=== PATIENT | male | born 1950 | race Caucasian/White ===

== ENCOUNTER 2016-10-15 05:37 | Outpatient (CLI) | payer BC ==
[~2016-10-15] VITALS: Ht 177.8 cm; Wt 90.7 kg
[~2016-10-15 05:37] MED LIST: ATOR10TA PO; BISO5TAB8 PO; CPR500T PO; FENO145T2 PO; GLIM2TAB PO; MTF500T PO; TRM50T PO
[2016-10-15] MEDS ORDERED: COLE625T9 PO (15:12)
[2016-10-15] MEDS ORDERED: GLIM4TAB PO (15:12)
[2016-10-15] MEDS ORDERED: DAPA10TA PO (15:12)
[2016-10-15] MEDS ORDERED: LISI10TA2 PO (15:12)
[2016-10-15] MEDS ORDERED: ATOR20TA66 PO (15:12)
[2016-10-15] MEDS ORDERED: SITA100T12 PO (15:12)
== END 2016-10-15 15:23 ==
LOC: PREOP 05:37
PROVIDERS: ATTEND Internal Medicine
DX: Z01.818 Encounter for other preprocedural examination (principal); Z12.11 Encounter for screening for malignant neoplasm of colon

== ENCOUNTER 2016-10-18 07:46 | Day surgery (SDC) | payer BC ==
--- NOTE | 2016-10-10 23:22 | HISTORY AND PHYSICAL ---
DATE OF SERVICE: 10/18/2016 HISTORY OF PRESENT ILLNESS: The patient is a 66-year-old white male referred by Dr. Tse for screening colonoscopy. He is deemed to be of higher than average risk as his father had secondary to metastatic colorectal carcinoma at the age of 64. He has had a brother who had 2 cancerous polyps removed at the age of 55. He last underwent colonoscopy per Dr. Serna nearly 6 years ago at which time no abnormalities were noted. Prior to that in 2004, he had had 2 adenomas removed. Prior to that, he had had several small adenomatous polyps removed. The patient reports no bright red blood per rectum or melena. He has had no bowel habit change and reports that he feels well. 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 PAST MEDICAL HISTORY: Hypertension, hyperlipidemia and Type 2 diabetes mellitus for which he is on oral therapy. He has no known history of coronary artery disease. MEDICATIONS ON ADMISSION: Include metformin 500 mg b.i.d., Januvia 100 mg daily, Farxiga 10 mg daily, Glimepiride 4 mg daily, Welchol 625 mg 3 tablets b.i.d., atorvastatin 20 mg daily, lisinopril 10 mg daily, bisoprolol 5 mg daily. PAST SURGICAL HISTORY: He has had lumbar disk surgery in 2012 and has done well with resolution of radicular pain since that time. Appendectomy and carpal tunnel surgery in the past. FAMILY HISTORY: As per HPI. SOCIAL HISTORY: He is retired. He does have a 50+ pack year smoking history, quit as I recall around 1999, but continues to chew tobacco. He reports no significant alcohol intake. PHYSICAL EXAMINATION: GENERAL: Reveals a well appearing white male in no acute distress. VITAL SIGNS: Blood pressure 152/90, heart rate 66 and regular. HEENT: Examination is unremarkable. Sclerae nonicteric. Oral cavity Reveals no exudate, no evidence for tonsils. CHEST: Clear. CARDIOVASCULAR: Reveals regular rate and rhythm without murmur, S3 or S4. ABDOMEN: Soft, supple without mass, organomegaly or tenderness. Bowel sounds are positive. No evidence for abdominal aortic aneurysm was noted on manual palpation. EXTREMITIES: Reveal no cyanosis, clubbing or edema. ASSESSMENT: The patient is set up for screening colonoscopy on 10/18/2016 deemed to be of higher than average risk considering family history for colon cancer. Index cases for his father who succumbed to disease at the age of 64 and one brother who reported had 2 cancerous polyps removed around the age of 55. Prep instructions with Suprep kit were given and questions were answered. I thank you for the referral of this pleasant gentleman. Job ID: [id number] DocumentID: [id number] Dictated Date: 10/08/2016 09:42:43 Document Coordinator Date: 10/08/2016 10:09:30 Dictated By: ARTI MILLER MD
[~2016-10-18] VITALS: Ht 177.8 cm; Wt 90.7 kg
[~2016-10-18 07:46] MED LIST changes: +ATOR20TA66 PO; +COLE625T9 PO; +DAPA10TA PO; +GLIM4TAB PO; +LISI10TA2 PO; +SITA100T12 PO
[2016-10-18] MEDS ORDERED: 1/2 NS IV SOLUTION 1,000 ML IV STA (07:57)
[2016-10-18] MEDS ORDERED: MIDAZOLAM 2 MG/2 ML (VERSED) VIAL IVP PRN (08:00)
[2016-10-18] MEDS ORDERED: fentaNYL INJECTION 100 MCG/2 ML AMP IVP PRN (08:00)
[2016-10-18] MEDS ORDERED: LIDOCAINE JELLY 2% (XYLOCAINE) 5 ML TUBE MM PRN (08:00)
[2016-10-18 08:11] VITALS: BP 141/89
[2016-10-18] MEDS ORDERED: fentaNYL INJECTION 100 MCG/2 ML AMP ONE (08:56)
[2016-10-18] MEDS ORDERED: MIDAZOLAM 2 MG/2 ML (VERSED) VIAL ONE ×2 (08:56)
[2016-10-18] MEDS ORDERED: LIDOCAINE JELLY 2% (XYLOCAINE) 5 ML TUBE ONE (08:56)
--- NOTE | 2016-10-18 09:12 | Pre-Op Note & Conscious Sedat ---
Pre-Operative Progress Note H&P Reviewed The H&P was reviewed, patient examined and no changes noted. Date H&P Reviewed: Oct 18, 2016 Time H&P Reviewed: 09:00 Conscious Sedation Pre-Proced ASA Class: 2 Airway Mallampati Classification: ([place] appropriate class) I. II. III, IV Lungs Heart ASA score ASA 1: a normal healthy patient ASA 2: a patient with a mild systemic disease (mid diabetes, controlled hypertension, obesity ASA 3: a patient with a severe systemic disease that limits activity (angina , COPD, prior Myocardial infarction) ASA 4: a patient with an incapacitating disease that is a constant threat to life (CHF, renal failure) ASA 5: a moribund patient not expected to survive 24 hrs. (ruptured aneurysm) ASA 6: a declared brain patient whose organs are being harvested. For emergent operations, add the letter E after the classification Grade 2 Sedation Plan: Analgesia, Amnesia, Plan communicated to team members, Discussed options with patient/fam, Discussed risks with patient/fam Note The patient is an appropriate candidate to undergo the planned procedure, sedation, and anesthesia. The patient immediately re-assessed prior to indication. ARTI MILLER MD Oct 18, 2016 09:12
[2016-10-18 09:50] VITALS: BP 160/90
[2016-10-18 10:15] VITALS: BP 165/88
[2016-10-18 10:20] VITALS: BP 165/88
--- NOTE | 2016-10-19 15:23 | OPERATIVE REPORT ---
DATE OF SERVICE: COLONOSCOPY SUMMARY INDICATION FOR THE PROCEDURE: Screening colonoscopy. DESCRIPTION OF PROCEDURE: The patient was placed in the left lateral decubitus position. Prior to undergoing colonoscopy, digital rectal evaluation was performed. Anal sphincter tone was normal and the perianal reflexes intact. The prostate was moderately enlarged, anodular and nontender to digital inspection. No other abnormalities were noted on additional inspection of the anal canal or distal rectal vault. The colonoscope was then inserted into the rectum and under direct visualization advanced to the cecum. The cecum was identified by identification of the ileocecal valve, cecal strap and the appendiceal orifice. Photographic documentation was obtained. Careful inspection was made as the colonoscope was withdrawn. The patient tolerated the procedure well. FINDINGS: There is no evidence for internal or external hemorrhoids. The rectum was unremarkable. The sigmoid colon, splenic flexure and transverse colon were unremarkable. Present in the hepatic flexure was diminutive 2 mm sessile polyp. It was photographed and biopsied and ablated and submitted for histopathology. Remainder of the hepatic flexure, ascending colon and cecum were unremarkable. ASSESSMENT: One diminutive polyp was removed from the hepatic flexure with benign appearance. This was otherwise normal colonoscopy to the cecum. I would advocate consideration for repeat surveillance colonoscopy in 5 years secondary to this patient's family history. Additional findings include moderate BPH without evidence for nodularity on digital inspection. Thank you for the referral of this pleasant gentleman. Job ID: [id number] DocumentID: [id number] Dictated Date: 10/18/2016 13:02:36 Retirement Plan Counselor Date: 10/19/2016 03:50:06 Dictated By: ARTI MILLER MD
== END 2016-10-18 10:20 | disposition home or self-care (01) ==
LOC: ENDO 07:46
PROVIDERS: ATTEND Internal Medicine
DX: Z12.11 Encounter for screening for malignant neoplasm of colon (principal); D12.3 Benign neoplasm of transverse colon; N40.0 Benign prostatic hyperplasia without lower urinary tract symptoms; Z80.0 Family history of malignant neoplasm of digestive organs; Z86.010 Personal history of colon polyps; I10 Essential (primary) hypertension; E78.5 Hyperlipidemia, unspecified; E11.9 Type 2 diabetes mellitus without complications; Z79.899 Other long term (current) drug therapy; F17.220 Nicotine dependence, chewing tobacco, uncomplicated

== ENCOUNTER 2018-08-31 06:01 | Outpatient (CLI) | payer BC, MEDICARE, OTHER ==
[~2018-08-31] VITALS: Ht 177.8 cm; Wt 85.7 kg
[2018-08-31] MEDS ORDERED: METF-399 PO (15:23)
[2018-08-31] MEDS ORDERED: EXEN2PEN SQ (15:23)
[2018-08-31] MEDS ORDERED: LOVA40TA2 PO (15:23)
== END 2018-08-31 15:28 | disposition home or self-care (01) ==
LOC: PREOP 06:01
PROVIDERS: ATTEND Surgery
DX: Z01.818 Encounter for other preprocedural examination (principal)

== ENCOUNTER 2018-09-03 11:24 | Day surgery (SDC) | payer MEDICARE, OTHER ==
[~2018-09-03] VITALS: Ht 177.8 cm; Wt 85.7 kg
[2018-09-03] VITALS (10 sets, daily range): BP systolic 165–199; BP diastolic 87–114
[~2018-09-03 11:24] MED LIST changes: +EXEN2PEN SQ; +LOVA40TA2 PO; +METF-399 PO
--- OUTSIDE RECORDS SUMMARY | 2018-09-03 11:28 | XMS REPORT | Continuity of Care Document ---
Author Organization Unknown Address Unknown Allergies Active Description Code Type Severity Reaction Onset Reported/Identified Relationship to Patient Clinical Status Yes Penicillins [id number] Drug Allergy Unknown N/A 10/18/2016 Medications There is no data. Problems Date Dx Coded Attending Type Code Diagnosis Diagnosed By 10/01/2009 Ot 924.20 10/01/2009 Ot 959.7 10/01/2009 Ot E000.8 10/01/2009 Ot E821.9 11/16/2010 Ot 569.0 ANAL RECTAL POLYP 11/16/2010 Ot V12.72 PERSONAL HISTORY OF COLONIC POLYPS 11/16/2010 Ot V16.0 FAMILY HX-GI MALIGNANCY 11/16/2010 Ot V76.51 SCREEN MAL NEOP- COLON 09/29/2011 Ot 599.0 URIN TRACT INFECTION NOS 09/29/2011 Ot 601.0 ACUTE PROSTATITIS 09/29/2011 Ot 788.1 DYSURIA 12/08/2014 Ot 841.9 12/08/2014 Ot E000.8 12/08/2014 Ot E928.8 12/08/2014 Ot 786.2 12/08/2014 Ot 722.10 12/08/2014 Ot 722.52 12/29/2014 Ot 841.9 12/29/2014 Ot E000.8 12/29/2014 Ot E928.8 12/29/2014 Ot 786.2 12/29/2014 Ot 722.10 12/29/2014 Ot 722.52 04/01/2016 Ot 786.2 COUGH 04/01/2016 Ot 722.10 LUMBAR DISC DISPLACEMENT 04/01/2016 Ot 722.52 LUMB/LUMBOSAC DISC DEGEN 08/16/2016 Ot 786.2 COUGH 08/16/2016 Ot 722.10 LUMBAR DISC DISPLACEMENT 08/16/2016 Ot 722.52 LUMB/LUMBOSAC DISC DEGEN 08/19/2016 Ot 786.2 COUGH 08/19/2016 Ot 722.10 LUMBAR DISC DISPLACEMENT 08/19/2016 Ot 722.52 LUMB/LUMBOSAC DISC DEGEN 10/15/2016 ARTI MILLER MD Ot Z01.818 ENCOUNTER FOR OTHER PREPROCEDURAL EXAMIN 10/15/2016 ARTI MILLER MD Ot Z12.11 ENCOUNTER FOR SCREENING FOR MALIGNANT NE 10/15/2016 ARTI MILLER MD Ot Z01.818 ENCOUNTER FOR OTHER PREPROCEDURAL EXAMIN 10/15/2016 ARTI MILLER MD Ot Z12.11 ENCOUNTER FOR SCREENING FOR MALIGNANT NE 10/15/2016 ARTI MILLER MD Ot Z01.818 ENCOUNTER FOR OTHER PREPROCEDURAL EXAMIN 10/15/2016 ARTI MILLER MD Ot Z12.11 ENCOUNTER FOR SCREENING FOR MALIGNANT NE 10/18/2016 ARTI MILLER MD Ot D12.3 BENIGN NEOPLASM OF TRANSVERSE COLON 10/18/2016 ARTI MILLER MD Ot E11.9 TYPE 2 DIABETES MELLITUS WITHOUT COMPLIC 10/18/2016 ARTI MILLER MD Ot E78.5 HYPERLIPIDEMIA, UNSPECIFIED 10/18/2016 ARTI MILLER MD Ot F17.220 NICOTINE DEPENDENCE, CHEWING TOBACCO, UN 10/18/2016 ARTI MILLER MD Ot I10 ESSENTIAL (PRIMARY) HYPERTENSION 10/18/2016 ARTI MILLER MD Ot N40.0 BENIGN PROSTATIC HYPERPLASIA WITHOUT LOW 10/18/2016 ARTI MILLER MD Ot Z12.11 ENCOUNTER FOR SCREENING FOR MALIGNANT NE 10/18/2016 ARTI MILLER MD Ot Z79.899 OTHER [facility] (CURRENT) DRUG THERAPY 10/18/2016 ARTI MILLER MD Ot Z80.0 FAMILY HISTORY OF MALIGNANT NEOPLASM OF 10/18/2016 ARTI MILLER MD Ot Z86.010 PERSONAL HISTORY OF COLONIC POLYPS 10/23/2016 ARTI MILLER MD Ot D12.3 BENIGN NEOPLASM OF TRANSVERSE COLON 10/23/2016 ARTI MILLER MD Ot E11.9 TYPE 2 DIABETES MELLITUS WITHOUT COMPLIC 10/23/2016 ARTI MILLER MD Ot E78.5 HYPERLIPIDEMIA, UNSPECIFIED 10/23/2016 ARTI MILLER MD Ot F17.220 NICOTINE DEPENDENCE, CHEWING TOBACCO, UN 10/23/2016 ARTI MILLER MD Ot I10 ESSENTIAL (PRIMARY) HYPERTENSION 10/23/2016 ARTI MILLER MD Ot N40.0 BENIGN PROSTATIC HYPERPLASIA WITHOUT LOW 10/23/2016 ARTI MILLER MD Ot Z12.11 ENCOUNTER FOR SCREENING FOR MALIGNANT NE 10/23/2016 ARTI MILLER MD Ot Z79.899 OTHER [facility] (CURRENT) DRUG THERAPY 10/23/2016 ARTI MILLER MD Ot Z80.0 FAMILY HISTORY OF MALIGNANT NEOPLASM OF 10/23/2016 ARTI MILLER MD Ot Z86.010 PERSONAL HISTORY OF COLONIC POLYPS 11/27/2016 ARTI MILLER MD Ot D12.3 BENIGN NEOPLASM OF TRANSVERSE COLON 11/27/2016 ARTI MILLER MD Ot E11.9 TYPE 2 DIABETES MELLITUS WITHOUT COMPLIC 11/27/2016 ARTI MILLER MD Ot E78.5 HYPERLIPIDEMIA, UNSPECIFIED 11/27/2016 ARTI MILLER MD Ot F17.220 NICOTINE DEPENDENCE, CHEWING TOBACCO, UN 11/27/2016 ARTI MILLER MD Ot I10 ESSENTIAL (PRIMARY) HYPERTENSION 11/27/2016 ARTI MILLER MD Ot N40.0 BENIGN PROSTATIC HYPERPLASIA WITHOUT LOW 11/27/2016 ARTI MILLER MD Ot Z12.11 ENCOUNTER FOR SCREENING FOR MALIGNANT NE 11/27/2016 ARTI MILLER MD Ot Z79.899 OTHER [facility] (CURRENT) DRUG THERAPY 11/27/2016 ARTI MILLER MD Ot Z80.0 FAMILY HISTORY OF MALIGNANT NEOPLASM OF 11/27/2016 ARTI MILLER MD Ot Z86.010 PERSONAL HISTORY OF COLONIC POLYPS 08/31/2018 BLESSING VIVEROS MD Ot Z01.818 ENCOUNTER FOR OTHER PREPROCEDURAL EXAMIN 09/01/2018 BLESSING VIVEROS MD Ot Z01.818 ENCOUNTER FOR OTHER PREPROCEDURAL EXAMIN Procedures There is no data. Results There is no data. Encounters ACCT No. Visit Date/Time Discharge Status Pt. Type Provider Facility Loc./Unit Complaint [id number] 08/31/2018 06:01:00 08/31/2018 15:28:00 DIS Outpatient BLESSING VIVEROS MD [facility] PREOP SYMPTOMATIC VENTRAL ABDOMINAL HERNIA [id number] 10/18/2016 07:46:00 10/18/2016 10:20:00 DIS Outpatient ARTI MILLER MD [facility] ENDO SCREENING COLONOSCOPY [id number] 10/15/2016 05:37:00 10/15/2016 15:23:00 DIS Outpatient ANGELA WEINBERG, ARTI Islas [facility] PREOP SCREENING COLONOSCOPY [id number] 12/12/2014 10:45:00 12/12/2014 23:59:59 CLS Outpatient TRE CURIEL APRN [facility] QUICK [id number] 09/03/2018 14:30:00 PEN Preadmit BLESSING VIVEROS MD [facility] SYMPTOMATIC VENTAL ABDOMINAL HERNIA [id number] 09/29/2011 07:04:00 Document Registration [id number] 05/16/2011 08:07:00 Document Registration [id number] 02/28/2011 13:46:00 Document Registration [id number] 11/16/2010 06:51:00 Document Registration [id number] 09/28/2010 14:27:00 Document Registration [id number] 10/01/2009 12:20:00 Document Registration
--- OUTSIDE RECORDS SUMMARY | 2018-09-03 11:28 | XMS REPORT | CCD ---
Author Author Marilin Hobbs Organization [facility] Address [address] [place] [address] Phone Care Team Providers Care Global Technical Writer Name Role Phone PP Unavailable CCM Unavailable Summary Purpose Interface Exchange Insurance Providers Payer name Policy type / Coverage type Covered libertarian ID Effective Begin Date Effective End Date CORESOURCES Commercial Insurance [id number] Unknown Unknown Family history Sister Diagnosis Age At Onset Diabetes mellitus Type 2 Unknown Mother Diagnosis Age At Onset Hypertension Unknown Heart Attack Unknown Father Diagnosis Age At Onset Colon cancer Unknown Brother Diagnosis Age At Onset Diabetes mellitus Type 2 Unknown Social History Social History Element Codes Description Effective Dates Marital status Unknown 07/12/2014 Living arrangements Unknown House 07/12/2014 Number of adults in household Unknown 3 lives with and 's adult sister who has down syndrome 07/12/2014 Employment Unknown Retired 07/12/[address]: [id number] Currently uses smokeless tobacco 1 can every 2 weeks 07/12/2014 Number of years using tobacco Unknown 20 - 30 25 years 07/12/2014 Alcohol history Unknown occasionally drinks alcohol 1 beer per month 07/12/2014 Allergies, Adverse Reactions, Alerts Substance Reaction Codes Entered Date Inactivated Date Status Penicillin hives Unknown 07/12/2014 No Inactive Date Active Past Medical History Illness Codes Condition Status Onset Date Resolved Date Tinea unguium ICD-9: 110.1 ICD-10: B35.1 Active 06/25/2015 Unknown Atherosclerosis of aorta ICD-9: 440.0 ICD-10: I70.0 Active 02/15/2015 Unknown Essential (primary) hypertension ICD-9: 401.9 ICD-10: I10 Active 02/15/2015 Unknown Other bed bug exterminator (current) drug therapy ICD-9: V58.69 ICD-10: Z79.899 Active 02/15/2015 Unknown Pleurodynia ICD-9: 786.50 ICD-10: R07.81 Active 12/14/2014 Unknown Diabetes Unknown Active 07/12/2014 Unknown Hyperlipidemia Unknown Active 07/12/2014 Unknown Hypertension Unknown Active 07/12/2014 Unknown DIABETES TYPE II ICD-9: 250.00 Active 07/11/2014 Unknown ESSENTIAL HYPERTENSION ICD-9: 401.9 Active 07/11/2014 Unknown Fatigue ICD-9: 780.79 Active 07/11/2014 Unknown HYPERLIPIDEMIA ICD-9: 272.4 Active 07/11/2014 Unknown URINARY FREQUENCY ICD-9: 788.41 Active 07/11/2014 Unknown Problems Condition Codes Effective Dates Condition Status Tinea unguium ICD-9: 110.1 ICD-10: B35.1 06/25/2015 Active Atherosclerosis of aorta ICD-9: 440.0 ICD-10: I70.0 02/15/2015 Active Essential (primary) hypertension ICD-9: 401.9 ICD-10: I10 02/15/2015 Active Other retirement (current) drug therapy ICD-9: V58.69 ICD-10: Z79.899 02/15/2015 Active Pleurodynia ICD-9: 786.50 ICD-10: R07.81 12/14/2014 Active Diabetes Unknown 07/12/2014 Active Hyperlipidemia Unknown 07/12/2014 Active Hypertension Unknown 07/12/2014 Active DIABETES TYPE II ICD-9: 250.00 07/11/2014 Active ESSENTIAL HYPERTENSION ICD-9: 401.9 07/11/2014 Active Fatigue ICD-9: 780.79 07/11/2014 Active HYPERLIPIDEMIA ICD-9: 272.4 07/11/2014 Active URINARY FREQUENCY ICD-9: 788.41 07/11/2014 Active Medications Medication Codes Instructions Start Date Stop Date Status Fill Instructions atorvastatin 80 mg tablet RxNorm: 979918 1 Tablet(s) PO daily 07/11/2016 07/05/2017 Active lisinopril 10 mg tablet RxNorm: 638916 1 Tablet(s) PO daily 06/21/2016 06/15/2017 Active Farxiga 10 mg tablet RxNorm: 5863452 1 Tablet(s) PO daily 06/21/2016 06/15/2017 Active glimepiride 4 mg tablet RxNorm: 093435 1 Tablet(s) PO daily 05/31/2016 11/26/2016 Active atorvastatin 80 mg tablet RxNorm: 749252 1 Tablet(s) PO daily 03/12/2016 07/10/2016 Inactive atorvastatin 80 mg tablet RxNorm: 408194 1 Tablet(s) PO daily 02/29/2016 02/28/2016 Inactive atorvastatin 80 mg tablet RxNorm: 151677 1 Tablet(s) PO daily 02/29/2016 03/11/2016 Inactive WelChol 625 mg tablet RxNorm: 055179 3 Tablet(s) PO BID 12/01/2015 08/26/2016 Active lisinopril 10 mg tablet RxNorm: 221140 1 Tablet(s) PO daily 10/30/2015 06/20/2016 Inactive Farxiga 10 mg tablet RxNorm: 1417773 1 Tablet(s) PO daily 10/30/2015 06/20/2016 Inactive Januvia 100 mg tablet RxNorm: 904380 1 Tablet(s) PO daily 10/13/2015 07/08/2016 Inactive metformin 500 mg tablet RxNorm: 688615 1.5 Tablet(s) PO BID 10/11/2015 10/04/2016 Active Dosage increased- Fill when ready for refill atorvastatin 40 mg tablet RxNorm: 091652 1 Tablet(s) PO daily 10/11/2015 02/28/2016 Inactive Fill when ready for a refill glimepiride 4 mg tablet RxNorm: 712898 1 Tablet(s) PO daily 09/22/2015 03/19/2016 Inactive atorvastatin 40 mg tablet RxNorm: 159289 1/2 Tablet(s) PO daily 09/05/2015 10/10/2015 Inactive bisoprolol fumarate 5 mg tablet RxNorm: 311963 1/2 Tablet(s) PO daily 07/04/2015 06/27/2016 Inactive Lamisil 250 mg tablet RxNorm: 909026 1 Tablet(s) PO daily 06/26/2015 08/06/2015 Inactive atorvastatin 40 mg tablet RxNorm: 504375 1 Tablet(s) PO daily 06/05/2015 09/04/2015 Inactive atorvastatin 20 mg tablet RxNorm: 608480 1 Tablet(s) PO daily 02/22/2015 06/04/2015 Inactive atorvastatin 20 mg tablet RxNorm: 914200 1 Tablet(s) PO daily 02/21/2015 02/21/2015 Inactive atorvastatin 20 mg tablet RxNorm: 770312 1 Tablet(s) PO daily 02/21/2015 02/20/2015 Inactive glimepiride 4 mg tablet RxNorm: 687149 1 Tablet(s) PO daily 02/16/2015 08/14/2015 Inactive lisinopril 10 mg tablet RxNorm: 674267 1 Tablet(s) PO daily 02/16/2015 05/16/2015 Inactive metformin 500 mg tablet RxNorm: 489874 1 Tablet(s) PO BID 02/16/2015 10/10/2015 Inactive bisoprolol fumarate 5 mg tablet RxNorm: 729591 1/2 Tablet(s) PO daily 02/16/2015 07/03/2015 Inactive Farxiga 10 mg tablet RxNorm: 6059648 1 Tablet(s) PO daily 02/16/2015 08/14/2015 Inactive Januvia 100 mg tablet RxNorm: 177349 1 Tablet(s) PO daily 02/16/2015 08/14/2015 Inactive atorvastatin 10 mg tablet RxNorm: 318565 1 Tablet(s) PO daily 02/16/2015 02/20/2015 Inactive WelChol 625 mg tablet RxNorm: 787322 3 Tablet(s) PO BID 07/18/2014 07/12/2015 Inactive WelChol 625 mg tablet RxNorm: 359579 3 Tablet(s) PO BID 07/15/2014 07/17/2014 Inactive WelChol 625 mg tablet RxNorm: 854149 3 Tablet(s) PO BID 07/15/2014 07/14/2014 Inactive WelChol 625 mg tablet RxNorm: 239269 3 Tablet(s) PO BID 07/15/2014 07/14/2014 Inactive Januvia 100 mg tablet RxNorm: 605883 1 Tablet(s) PO daily 07/12/2014 01/07/2015 Inactive metformin 500 mg tablet RxNorm: 996374 1 Tablet(s) PO BID 07/12/2014 07/11/2014 Inactive bisoprolol fumarate 5 mg tablet RxNorm: 394885 1/2 Tablet(s) PO daily 07/12/2014 01/07/2015 Inactive atorvastatin 10 mg tablet RxNorm: 083810 1 Tablet(s) PO daily 07/12/2014 01/07/2015 Inactive metformin 500 mg tablet RxNorm: 016940 1 Tablet(s) PO BID 07/12/2014 10/09/2014 Inactive Farxiga 10 mg tablet RxNorm: 2214376 1 Tablet(s) PO daily 07/12/2014 01/07/2015 Inactive lisinopril 10 mg tablet RxNorm: 367046 1 Tablet(s) PO daily 07/12/2014 10/09/2014 Inactive glimepiride 4 mg tablet RxNorm: 914416 1 Tablet(s) PO daily 07/12/2014 01/07/2015 Inactive bisoprolol fumarate oral RxNorm: 259349 oral No Start Date 07/11/2014 Inactive Medication Administered No Medication Administered data Immunizations No Immunization data Assessments Condition Codes Effective Dates Tinea unguium ICD-10: B35.1 ICD-9: 110.1 06/26/2015 Essential (primary) hypertension ICD-10: I10 ICD-9: 401.9 02/16/2015 Atherosclerosis of aorta ICD-10: I70.0 ICD-9: 440.0 02/16/2015 Other bed bug exterminator (current) drug therapy ICD-10: Z79.899 ICD-9: V58.69 02/16/2015 Pleurodynia ICD-10: R07.81 ICD-9: 786.50 12/15/2014 HYPERLIPIDEMIA ICD-9: 272.4 07/12/2014 Fatigue ICD-9: 780.79 07/12/2014 ESSENTIAL HYPERTENSION ICD-9: 401.9 07/12/2014 URINARY FREQUENCY ICD-9: 788.41 07/12/2014 DIABETES TYPE II ICD-9: 250.00 07/12/2014 Reason For Visit Reason For Visit Effective Dates Notes finger pain due to infection 06/26/2015 medication follow up 02/16/2015 bone pain 12/15/2014 diabetes mellitus 07/12/2014 Results Observation Observation Code Item Item Code Result Date Cbc With Differential Ord2 WBC 8.75 K/ul 01/19/2016 Cbc With Differential Ord2 RBC 5.56 M/ul 01/19/2016 Cbc With Differential Ord2 HGB 17.0 g/dl 01/19/2016 Cbc With Differential Ord2 Neut% 59.8 % 01/19/2016 Cbc With Differential Ord2 HCT 48.7 % 01/19/2016 Cbc With Differential Ord2 MCV 87.6 fl 01/19/2016 Cbc With Differential Ord2 Lymph% 27.4 % 01/19/2016 Cbc With Differential Ord2 MCH 30.6 pg 01/19/2016 Cbc With Differential Ord2 Hill% 9.4 % 01/19/2016 Cbc With Differential Ord2 MCHC 34.9 pg 01/19/2016 Cbc With Differential Ord2 Eos% 3.1 % 01/19/2016 Cbc With Differential Ord2 PLT 232 K/ul 01/19/2016 Cbc With Differential Ord2 Baso% 0.3 % 01/19/2016 Cbc With Differential Ord2 RDW 13.9 % 01/19/2016 Cbc With Differential Ord2 Neut ABS# 5.23 K/ul 01/19/2016 Cbc With Differential Ord2 Lymph ABS# 2.40 K/ul 01/19/2016 Cbc With Differential Ord2 Hill ABS# 0.8 K/ul 01/19/2016 Cbc With Differential Ord2 Eos ABS# 0.3 K/ul 01/19/2016 Cbc With Differential Ord2 Baso ABS# 0.0 K/ul 01/19/2016 Tsh Ord6 hTSH II 3.61 uIU/mL 01/19/2016 Comp Metabolic Mtv321 NA 137 mEq/L 01/19/2016 Comp Metabolic Eaa627 K 4.4 mEq/L 01/19/2016 Comp Metabolic Ooj216 CL 102 mEq/L 01/19/2016 Comp Metabolic Pem459 CO2 28.0 mEq/L 01/19/2016 Comp Metabolic Bnr415 ANION GAP 11 01/19/2016 Comp Metabolic Lrr383 GLUCOSE 175 mg/dL 01/19/2016 Comp Metabolic Cgg861 Creat 1.0 mg/dL 01/19/2016 Comp Metabolic Pgx564 eGFR 79 ml/min/1.73m2 01/19/2016 Comp Metabolic Vbs948 BUN 17 mg/dL 01/19/2016 Comp Metabolic Aaa708 B/C Ratio 16.8 Ratio 01/19/2016 Comp Metabolic Sis185 CALCIUM 10.1 mg/dL 01/19/2016 Comp Metabolic Xkn016 ALK PHOS 86 U/L 01/19/2016 Comp Metabolic Odq093 AST(SGOT) 23 U/L 01/19/2016 Comp Metabolic Uub400 ALT(SGPT) 50 U/L 01/19/2016 Comp Metabolic Ueu163 BILI T 0.7 mg/dL 01/19/2016 Comp Metabolic Wxm697 ALBUMIN 4.7 g/dL 01/19/2016 Comp Metabolic Dll696 TPRO 7.1 g/dL 01/19/2016 Comp Metabolic Idy751 GLOB 2.4 g/dL 01/19/2016 Comp Metabolic Ncs262 A/G Ratio 1.9 Ratio 01/19/2016 Comp Metabolic Gfc873 Osmo 280 mOsmo 01/19/2016 %Hba1C Onr427 % HbA1c 80487- 6 7.2 % 01/19/2016 %Hba1C Rkj372 Gluc Ave 160 mg/dL 01/19/2016 Lipid Ord30 CHOL 156 mg/dL 01/19/2016 Lipid Ord30 HDL 29.0 mg/dl 01/19/2016 Lipid Ord30 TRIG >1000 mg/dL 01/19/2016 Lipid Ord30 LDL Unable to calculate Due to elevated triglycerides mg/dL 01/19/2016 Lipid Ord30 C/HDL 5.4 Ratio 01/19/2016 Lipid Ord30 CHOL 211 mg/dL 10/10/2015 Lipid Ord30 HDL 31.0 mg/dl 10/10/2015 Lipid Ord30 TRIG >1000 mg/dL 10/10/2015 Lipid Ord30 LDL Unable to calculate Due to elevated triglycerides mg/dL 10/10/2015 Lipid Ord30 C/HDL 6.8 Ratio 10/10/2015 %Hba1C Hyr583 % HbA1c 05874- 6 7.2 % 10/10/2015 %Hba1C Gaj814 Gluc Ave 160 mg/dL 10/10/2015 Hepatic Rwt452 ALBUMIN 4.6 g/dL 10/10/2015 Hepatic Gna314 TPRO 7.1 g/dL 10/10/2015 Hepatic Rqk426 GLOB 2.5 g/dL 10/10/2015 Hepatic Udq318 A/G Ratio 1.9 Ratio 10/10/2015 Hepatic Net837 ALK PHOS 77 U/L 10/10/2015 Hepatic Hbr814 ALT(SGPT) 39 U/L 10/10/2015 Hepatic Rfw226 AST(SGOT) 23 U/L 10/10/2015 Hepatic Wxh559 BILI T 0.7 mg/dL 10/10/2015 Hepatic Oat453 BILI D 0.1 mg/dL 10/10/2015 Hepatic Yfg146 BILI I 0.6 mg/dL 10/10/2015 Hepatic Vgu032 ALBUMIN 4.5 g/dL 09/01/2015 Hepatic Ffa051 TPRO 6.9 g/dL 09/01/2015 Hepatic Iom937 GLOB 2.4 g/dL 09/01/2015 Hepatic Zeb288 A/G Ratio 1.8 Ratio 09/01/2015 Hepatic Xna164 ALK PHOS 75 U/L 09/01/2015 Hepatic Fmk774 ALT(SGPT) 40 U/L 09/01/2015 Hepatic Mgc655 AST(SGOT) 23 U/L 09/01/2015 Hepatic Ihp129 BILI T 0.6 mg/dL 09/01/2015 Hepatic Qdf186 BILI D 0.1 mg/dL 09/01/2015 Hepatic Crx487 BILI I 0.5 mg/dL 09/01/2015 Hepatic Dfc501 ALBUMIN 4.5 g/dL 07/28/2015 Hepatic Zrs943 TPRO 6.9 g/dL 07/28/2015 Hepatic Yit365 GLOB 2.4 g/dL 07/28/2015 Hepatic Xum199 A/G Ratio 1.9 Ratio 07/28/2015 Hepatic Lyp395 ALK PHOS 82 U/L 07/28/2015 Hepatic Lab334 ALT(SGPT) 38 U/L 07/28/2015 Hepatic Joo345 AST(SGOT) 18 U/L 07/28/2015 Hepatic Vig015 BILI T 0.5 mg/dL 07/28/2015 Hepatic Nyh596 BILI D 0.1 mg/dL 07/28/2015 Hepatic Uru219 BILI I 0.4 mg/dL 07/28/2015 %Hba1C Cva698 % HbA1c 15407- 6 7.2 % 06/05/2015 %Hba1C Fgw275 Gluc Ave 160 mg/dL 06/05/2015 Lipid Ord30 CHOL 129 mg/dL 06/05/2015 Lipid Ord30 HDL 30.0 mg/dl 06/05/2015 Lipid Ord30 TRIG 492 mg/dL 06/05/2015 Lipid Ord30 LDL Unable to calculate Due to elevated triglycerides mg/dL 06/05/2015 Lipid Ord30 C/HDL 4.3 Ratio 06/05/2015 %Hba1C Edg903 % HbA1c 39206- 6 7.1 % 02/17/2015 %Hba1C Dpg146 Gluc Ave 157 mg/dL 02/17/2015 Cbc With Differential Ord2 WBC 8.0 K/uL 02/17/2015 Cbc With Differential Ord2 LYM 2.1 K/uL 02/17/2015 Cbc With Differential Ord2 LYM% 25.9 % 02/17/2015 Cbc With Differential Ord2 NEUT/GRAN 5.4 K/uL 02/17/2015 Cbc With Differential Ord2 NEUT/GRAN % 68.1 % 02/17/2015 Cbc With Differential Ord2 MID 0.5 K/uL 02/17/2015 Cbc With Differential Ord2 MID% 6.0 % 02/17/2015 Cbc With Differential Ord2 RBC 5.46 M/uL 02/17/2015 Cbc With Differential Ord2 HGB 16.3 g/dL 02/17/2015 Cbc With Differential Ord2 HCT 49.8 % 02/17/2015 Cbc With Differential Ord2 MCV 91 fL 02/17/2015 Cbc With Differential Ord2 MCH 30 pg 02/17/2015 Cbc With Differential Ord2 MCHC 33 g/dL 02/17/2015 Cbc With Differential Ord2 PLT 209 K/uL 02/17/2015 Cbc With Differential Ord2 RDW 14.2 % 02/17/2015 Lipid Ord30 CHOL 163 mg/dL 02/17/2015 Lipid Ord30 HDL 32.0 mg/dl 02/17/2015 Lipid Ord30 TRIG 661 mg/dL 02/17/2015 Lipid Ord30 LDL Unable to calculate Due to elevated triglycerides mg/dL 02/17/2015 Lipid Ord30 C/HDL 5.1 Ratio 02/17/2015 Comp Metabolic Xbl449 NA 136 mEq/L 02/17/2015 Comp Metabolic Ryz180 K 4.4 mEq/L 02/17/2015 Comp Metabolic Khc779 CL 103 mEq/L 02/17/2015 Comp Metabolic Oxx135 CO2 26.0 mEq/L 02/17/2015 Comp Metabolic Xuv484 ANION GAP 11 02/17/2015 Comp Metabolic Bth766 GLUCOSE 164 mg/dL 02/17/2015 Comp Metabolic Odj520 Creat 1.0 mg/dL 02/17/2015 Comp Metabolic Rxa705 eGFR 84 ml/min/1.73m2 02/17/2015 Comp Metabolic Use868 BUN 18 mg/dL 02/17/2015 Comp Metabolic Fbl605 B/C Ratio 18.8 Ratio 02/17/2015 Comp Metabolic Zre671 CALCIUM 9.6 mg/dL 02/17/2015 Comp Metabolic Uis043 ALK PHOS 74 U/L 02/17/2015 Comp Metabolic Otg728 AST(SGOT) 20 U/L 02/17/2015 Comp Metabolic Hcp692 ALT(SGPT) 45 U/L 02/17/2015 Comp Metabolic Xxu294 BILI T 0.6 mg/dL 02/17/2015 Comp Metabolic Kkp068 ALBUMIN 4.3 g/dL 02/17/2015 Comp Metabolic Wqu079 TPRO 6.6 g/dL 02/17/2015 Comp Metabolic Gzx092 GLOB 2.3 g/dL 02/17/2015 Comp Metabolic Wdv822 A/G Ratio 1.9 Ratio 02/17/2015 Comp Metabolic Gss641 Osmo 277 mOsmo 02/17/2015 Review of Systems System Result Effective Dates Constitutional No chills 06/26/2015 Constitutional No diaphoresis 06/26/2015 Constitutional No fatigue 06/26/2015 Constitutional No fever 06/26/2015 Constitutional No insomnia 06/26/2015 Constitutional No malaise 06/26/2015 Eyes No eye discharge 06/26/2015 Eyes No eye erythema 06/26/2015 Cardiovascular No chest pain/pressure 06/26/2015 Respiratory No productive sputum 06/26/2015 Respiratory No chest congestion 06/26/2015 Respiratory No cough 06/26/2015 Neurologic No alteration of consciousness 06/26/2015 Ears/Nose/Throat/Neck No nasal allergies 06/26/2015 Ears/Nose/Throat/Neck No nasal discharge 06/26/2015 Cardiovascular No dyspnea 06/26/2015 Gastrointestinal No abdominal pain 06/26/2015 Dermatologic onychodystrophy 06/26/2015 Neurologic No mental status change 06/26/2015 Constitutional No recent illness 02/16/2015 Constitutional No anorexia 02/16/2015 Constitutional No night sweats 02/16/2015 Constitutional No chills 02/16/2015 Constitutional No diaphoresis 02/16/2015 Constitutional No fatigue 02/16/2015 Constitutional No fever 02/16/2015 Constitutional No insomnia 02/16/2015 Constitutional No malaise 02/16/2015 Eyes No eye discharge 02/16/2015 Eyes No eye erythema 02/16/2015 Ears/Nose/Throat/Neck No dizziness 02/16/2015 Ears/Nose/Throat/Neck No headache 02/16/2015 Cardiovascular No chest pain/pressure 02/16/2015 Respiratory No productive sputum 02/16/2015 Respiratory No chest congestion 02/16/2015 Respiratory No cough 02/16/2015 Gastrointestinal No abdominal pain 02/16/2015 Gastrointestinal No constipation 02/16/2015 Gastrointestinal No diarrhea 02/16/2015 Genitourinary/Nephrology No dysuria 02/16/2015 Dermatologic No rash 02/16/2015 Neurologic No alteration of consciousness 02/16/2015 Musculoskeletal No joint complaint 02/16/2015 Respiratory No productive sputum 12/15/2014 Respiratory No chest congestion 12/15/2014 Respiratory No cough 12/15/2014 Constitutional No recent illness 12/15/2014 Constitutional No anorexia 12/15/2014 Constitutional No night sweats 12/15/2014 Constitutional No chills 12/15/2014 Constitutional No fatigue 12/15/2014 Constitutional No fever 12/15/2014 Constitutional No diaphoresis 12/15/2014 Constitutional No malaise 12/15/2014 Constitutional No insomnia 12/15/2014 Constitutional No weight loss 12/15/2014 Constitutional No weight gain 12/15/2014 Eyes No eye discharge 12/15/2014 Eyes No eye erythema 12/15/2014 Ears/Nose/Throat/Neck No dizziness 12/15/2014 Ears/Nose/Throat/Neck No headache 12/15/2014 Cardiovascular No chest pain/pressure 12/15/2014 Gastrointestinal No abdominal pain 12/15/2014 Gastrointestinal No constipation 12/15/2014 Gastrointestinal No diarrhea 12/15/2014 Genitourinary/Nephrology No dysuria 12/15/2014 Dermatologic No rash 12/15/2014 Musculoskeletal No bone fracture 12/15/2014 Neurologic No alteration of consciousness 12/15/2014 Constitutional No fever 07/12/2014 Ears/Nose/Throat/Neck No headache 07/12/2014 Ears/Nose/Throat/Neck No nasal allergies 07/12/2014 Cardiovascular No chest pain/pressure 07/12/2014 Cardiovascular No dyspnea 07/12/2014 Respiratory No cigarette smoking 07/12/2014 Gastrointestinal No constipation 07/12/2014 Gastrointestinal No diarrhea 07/12/2014 Genitourinary/Nephrology urinary urgency 07/12/2014 Genitourinary/Nephrology No dysuria 07/12/2014 Genitourinary/Nephrology No hematuria 07/12/2014 Musculoskeletal No bone pain 07/12/2014 Dermatologic No rash 07/12/2014 Dermatologic No sores 07/12/2014 Neurologic No headache 07/12/2014 Eyes No photophobia 07/12/2014 Eyes No vision change 07/12/2014 Eyes No blindness 07/12/2014 Cardiovascular fatigue 07/12/2014 Respiratory No chest tightness 07/12/2014 Respiratory No chest congestion 07/12/2014 Gastrointestinal No vomiting 07/12/2014 Gastrointestinal No nausea 07/12/2014 Musculoskeletal No back pain 07/12/2014 Physical Exam Exam Name System Name Item Name Status Result Effective Dates Notes Full Exam - General 1994 Constitutional general appearance Overall: well developed 06/26/2015 None Full Exam - General 1994 Constitutional general appearance Overall: in no acute distress 06/26/2015 None Full Exam - General 1994 Constitutional general appearance Overall: well nourished 06/26/2015 None Full Exam - General 1994 Respiratory respiratory effort/rhythm Overall: no retractions 06/26/2015 None Full Exam - General 1994 Respiratory respiratory effort/rhythm Overall: normal rate 06/26/2015 None Full Exam - General 1994 Musculoskeletal gait and station Overall: normal gait 06/26/2015 None Full Exam - General 1994 Musculoskeletal gait and station Overall: normal station 06/26/2015 None Full Exam - General 1994 Neurologic cranial nerves Overall: crainial nerves 2 - 12 grossly intact 06/26/2015 None Full Exam - General 1994 Psychiatric orientation/consciousness Overall: oriented to person, place and time 06/26/2015 None Full Exam - General 1994 Psychiatric mood and affect Overall: normal mood and affect 06/26/2015 None Full Exam - General 1994 Ears/Nose/Throat lips/teeth/gingiva Overall: benign lips 06/26/2015 None Full Exam - General 1994 Musculoskeletal digits and nails Nails: onycholysis 06/26/2015 left thumb - nail raised off of nail bed Full Exam - General 1994 Psychiatric appearance Overall: well-groomed, good eye contact 06/26/2015 None Full Exam - General 1994 Ears/Nose/Throat oral cavity/pharynx/larynx Overall: oral mucosa clear 02/16/2015 None Full Exam - General 1994 Respiratory auscultation Overall: breath sounds clear bilaterally 02/16/2015 None Full Exam - General 1994 Respiratory respiratory effort/rhythm Overall: no retractions 02/16/2015 None Full Exam - General 1994 Respiratory respiratory effort/rhythm Overall: normal rate 02/16/2015 None Full Exam - General 1994 Cardiovascular auscultation of heart Overall: regular rate 02/16/2015 None Full Exam - General 1994 Cardiovascular auscultation of heart Overall: normal heart sounds 02/16/2015 None Full Exam - General 1994 Abdomen abdominal exam Overall: no tenderness 02/16/2015 None Full Exam - General 1994 Abdomen abdominal exam Overall: normal bowel sounds 02/16/2015 None Full Exam - General 1994 Lymphatic neck nodes Overall: anterior cervical chain benign 02/16/2015 None Full Exam - General 1994 Lymphatic neck nodes Overall: posterior cervical chain benign 02/16/2015 None Full Exam - General 1994 Musculoskeletal gait and station Overall: normal gait 02/16/2015 None Full Exam - General 1994 Musculoskeletal gait and station Overall: normal station 02/16/2015 None Full Exam - General 1994 Neurologic coordination Overall: no tremors 02/16/2015 None Full Exam - General 1994 Neurologic cranial nerves Overall: crainial nerves 2 - 12 grossly intact 02/16/2015 None Full Exam - General 1994 Psychiatric orientation/consciousness Overall: oriented to person, place and time 02/16/2015 None Full Exam - General 1994 Psychiatric mood and affect Overall: normal mood and affect 02/16/2015 None Full Exam - General 1994 Psychiatric speech Overall: normal quality, no aphasia 02/16/2015 None Full Exam - General 1994 Constitutional general appearance Overall: well developed 02/16/2015 None Full Exam - General 1994 Constitutional general appearance Overall: in no acute distress 02/16/2015 None Full Exam - General 1994 Constitutional general appearance Overall: well nourished 02/16/2015 None Full Exam - General 1994 Ears/Nose/Throat otoscopic exam Overall: external auditory canals clear 02/16/2015 None Full Exam - General 1994 Ears/Nose/Throat otoscopic exam Overall: tympanic membranes clear 02/16/2015 None Full Exam - General 1994 Ears/Nose/Throat oral cavity/pharynx/larynx Overall: oral mucosa clear 12/15/2014 None Full Exam - General 1994 Neck inspection of neck Overall: normal size 12/15/2014 None Full Exam - General 1994 Neck inspection of neck Overall: normal appearance 12/15/2014 None Full Exam - General 1994 Respiratory auscultation Overall: breath sounds clear bilaterally 12/15/2014 None Full Exam - General 1994 Respiratory respiratory effort/rhythm Overall: no retractions 12/15/2014 None Full Exam - General 1994 Respiratory respiratory effort/rhythm Overall: normal rate 12/15/2014 None Full Exam - General 1994 Cardiovascular inspection of carotid pulses Overall: strong, bilaterally equal, no bruits 12/15/2014 None Full Exam - General 1994 Cardiovascular extremities Overall: no clubbing 12/15/2014 None Full Exam - General 1994 Cardiovascular auscultation of heart Overall: regular rate 12/15/2014 None Full Exam - General 1994 Cardiovascular auscultation of heart Overall: normal heart sounds 12/15/2014 None Full Exam - General 1994 Abdomen abdominal exam Overall: no tenderness 12/15/2014 None Full Exam - General 1994 Abdomen abdominal exam Overall: normal bowel sounds 12/15/2014 None Full Exam - General 1994 Lymphatic neck nodes Overall: anterior cervical chain benign 12/15/2014 None Full Exam - General 1994 Lymphatic neck nodes Overall: posterior cervical chain benign 12/15/2014 None Full Exam - General 1994 Musculoskeletal lower extremity Overall: lower leg non-tender, without crepitus or defects 12/15/2014 None Full Exam - General 1994 Musculoskeletal gait and station Overall: normal gait 12/15/2014 None Full Exam - General 1994 Musculoskeletal gait and station Overall: normal station 12/15/2014 None Full Exam - General 1994 Musculoskeletal head and neck Overall: head atraumatic 12/15/2014 None Full Exam - General 1994 Musculoskeletal head and neck Overall: cervical spine benign 12/15/2014 None Full Exam - General 1994 Musculoskeletal head and neck Head: atraumatic 12/15/2014 None Full Exam - General 1994 Musculoskeletal head and neck Head: normocephalic 12/15/2014 None Full Exam - General 1994 Integument inspection of skin Overall: few scattered moles, no gross abnormalities 12/15/2014 None Full Exam - General 1994 Integument palpation Face: non-tender 12/15/2014 None Full Exam - General 1994 Neurologic deep tendon reflexes Overall: deep tendon reflexes intact 12/15/2014 None Full Exam - General 1994 Neurologic coordination Overall: no tremors 12/15/2014 None Full Exam - General 1994 Neurologic cranial nerves Overall: crainial nerves 2 - 12 grossly intact 12/15/2014 None Full Exam - General 1994 Psychiatric orientation/consciousness Overall: oriented to person, place and time 12/15/2014 None Full Exam - General 1994 Psychiatric mood and affect Overall: normal mood and affect 12/15/2014 None Full Exam - General 1994 Psychiatric speech Overall: normal quality, no aphasia 12/15/2014 None Full Exam - General 1994 Psychiatric orientation/consciousness Overall: oriented to person, place and time 07/12/2014 None Full Exam - General 1994 Psychiatric mood and affect Overall: normal mood and affect 07/12/2014 None Full Exam - General 1994 Psychiatric speech Overall: normal quality, no aphasia 07/12/2014 None Full Exam - General 1994 Neurologic deep tendon reflexes Overall: deep tendon reflexes intact 07/12/2014 None Full Exam - General 1994 Neurologic coordination Overall: no tremors 07/12/2014 None Full Exam - General 1994 Neurologic cranial nerves Overall: crainial nerves 2 - 12 grossly intact 07/12/2014 None Full Exam - General 1994 Integument inspection of skin Overall: few scattered moles, no gross abnormalities 07/12/2014 None Full Exam - General 1994 Integument palpation Face: non-tender 07/12/2014 None Full Exam - General 1994 Musculoskeletal head and neck Overall: head atraumatic 07/12/2014 None Full Exam - General 1994 Musculoskeletal head and neck Overall: cervical spine benign 07/12/2014 None Full Exam - General 1994 Musculoskeletal head and neck Head: atraumatic 07/12/2014 None Full Exam - General 1994 Musculoskeletal head and neck Head: normocephalic 07/12/2014 None Full Exam - General 1994 Musculoskeletal gait and station Overall: normal gait 07/12/2014 None Full Exam - General 1994 Musculoskeletal gait and station Overall: normal station 07/12/2014 None Full Exam - General 1994 Musculoskeletal lower extremity Overall: lower leg non-tender, without crepitus or defects 07/12/2014 None Full Exam - General 1994 Lymphatic neck nodes Overall: anterior cervical chain benign 07/12/2014 None Full Exam - General 1994 Lymphatic neck nodes Overall: posterior cervical chain benign 07/12/2014 None Full Exam - General 1994 Abdomen abdominal exam Overall: no tenderness 07/12/2014 None Full Exam - General 1994 Abdomen abdominal exam Overall: normal bowel sounds 07/12/2014 None Full Exam - General 1994 Cardiovascular inspection of carotid pulses Overall: strong, bilaterally equal, no bruits 07/12/2014 None Full Exam - General 1994 Cardiovascular extremities Overall: no clubbing 07/12/2014 None Full Exam - General 1994 Cardiovascular auscultation of heart Overall: regular rate 07/12/2014 None Full Exam - General 1994 Cardiovascular auscultation of heart Overall: normal heart sounds 07/12/2014 None Full Exam - General 1994 Respiratory respiratory effort/rhythm Overall: no retractions 07/12/2014 None Full Exam - General 1994 Respiratory respiratory effort/rhythm Overall: normal rate 07/12/2014 None Full Exam - General 1994 Respiratory auscultation Overall: breath sounds clear bilaterally 07/12/2014 None Full Exam - General 1994 Neck inspection of neck Overall: normal size 07/12/2014 None Full Exam - General 1994 Neck inspection of neck Overall: normal appearance 07/12/2014 None Full Exam - General 1994 Ears/Nose/Throat oral cavity/pharynx/larynx Overall: oral mucosa clear 07/12/2014 None Procedures No Procedures data Vital Signs Date Vital 06/26/2015 Blood Pressure 1: 158/82 Code: 8480-6 BMI: 28.6 Code: 40136-6 Heart Rate 1: 61 bpm Height: 5'10" SpO2: 96% Weight: 199 lbs 02/16/2015 Blood Pressure 1: 158/82 Code: 8480-6 BMI: 28.6 Code: 11091-7 Heart Rate 1: 61 bpm Height: 5'10" SpO2: 96% Weight: 199 lbs 12/15/2014 Blood Pressure 1: 128/80 Code: 8480-6 BMI: 28.6 Code: 32966-5 Heart Rate 1: 58 bpm Height: 5'10" SpO2: 98% Weight: 199 lbs 07/12/2014 Blood Pressure 1: 148/90 Code: 8480-6 BMI: 28.0 Code: 21784-2 Heart Rate 1: 58 bpm Height: 5'10" Weight: 195 lbs Functional Status No Functional Status data History of Present Illness Symptom Name Status Result Effective Date Notes finger pain due to infection Location in the left thumb 06/26/2015 None finger pain due to infection Quality sharp pain 06/26/2015 None finger pain due to infection Quality numbness 06/26/2015 None finger pain due to infection Quality constant 06/26/2015 None finger pain due to infection Onset of Symptom 4 months ago 06/26/2015 None finger pain due to infection Pertinent Findings pain with movement 06/26/2015 None finger pain due to infection Pertinent Findings redness 06/26/2015 None medication follow up Location oral intake 02/16/2015 None medication follow up Additional Comments medication use 02/16/2015 None medication follow up Quality chronic 02/16/2015 None bone pain Quality acute 12/15/2014 fell onto right side of chest-xray negative bone pain Onset and Resolution ongoing 12/15/2014 pain much improved bone pain Onset of Symptom 4 days ago 12/15/2014 None bone pain Limitation on Activities does not limit activities 12/15/2014 None bone pain Frequency of Episodes decreasing 12/15/2014 None bone pain Triggers no known associated factors 12/15/2014 None diabetes mellitus Quality non-insulin dependent 07/12/2014 None diabetes mellitus Quality chronic 07/12/2014 None diabetes mellitus Quality stable 07/12/2014 None diabetes mellitus Severity moderate 07/12/2014 None diabetes mellitus Test results Pt checking blood glucose readings, did not bring results to clinic 07/12/2014 None diabetes mellitus Alleviating Factors medication 07/12/2014 None diabetes mellitus Alleviating Factors diet 07/12/2014 None diabetes mellitus Alleviating Factors exercise 07/12/2014 None diabetes mellitus Exacerbating Factors diet 07/12/2014 None diabetes mellitus Nutrition regular diet 07/12/2014 None diabetes mellitus Exercise moderate exercise 07/12/2014 None urinary frequency Quality stable 07/12/2014 None urinary frequency Onset and Resolution ongoing 07/12/2014 None urinary frequency Limitation on Activities moderately limits activities 07/12/2014 None urinary frequency Frequency of Episodes unchanged 07/12/2014 None urinary frequency Timing of Episodes at night 07/12/2014 None urinary frequency Timing of Episodes in the morning 07/12/2014 after sitting down for a prolonged period of time urinary frequency Timing of Episodes in the afternoon 07/12/2014 None urinary frequency Significant Medical Conditions diabetes mellitus 07/12/2014 None hypertension Quality chronic 07/12/2014 None hypertension Onset and Resolution ongoing 07/12/2014 None hypertension Onset of Symptom during adulthood 07/12/2014 None hypertension Blood Pressure Values not checking blood pressure at home 07/12/2014 None hypertension Severity mild 07/12/2014 None hypertension Frequency of Episodes unchanged 07/12/2014 None Advance Directives No Advance Directive data Encounters Encounter Performer Location Codes Date [id number] EST. PATIENT, LEVEL IV Diagnosis: Tinea unguium[ICD10: B35.1] Lupe Tse MD, [facility] CPT-4: 43446 06/26/2015 [id number] EST. PATIENT, LEVEL III Diagnosis: Essential (primary) hypertension[ICD10: I10] Diagnosis: Atherosclerosis of aorta[ICD10: I70.0] Diagnosis: Other retirement (current) drug therapy[ICD10: Z79.899] Lupe Tse MD, [facility] CPT-4: 14048 02/16/2015 ([id number]) 53528 EST. PATIENT, LEVEL III Diagnosis: Pleurodynia[ICD10: R07.81] Diagnosis: Atherosclerosis of aorta[ICD10: I70.0] Diagnosis: Essential (primary) hypertension[ICD10: I10] Patricia Tse MD, [facility] CPT-4: 66528 12/15/2014 ([id number]) OFFICE VISIT, NEW - LEVEL 4 Diagnosis: DIABETES TYPE II[ICD9: 250.00] Diagnosis: HYPERLIPIDEMIA[ICD9: 272.4] Diagnosis: ESSENTIAL HYPERTENSION[ICD9: 401.9] Diagnosis: URINARY FREQUENCY[ICD9: 788.41] Diagnosis: Fatigue[ICD9: 780.79] [facility] CPT-4: 70078 07/12/2014 Plan of Care Planned Activity Notes Codes Status Date Visit Plan: Onychodystrophy - Left thumb nail - nail raised from the nail bed, will send RX - pt is to have liver function labs in 2-4 weeks. Pt is to notify clinic symptoms do not improve, or with any questions or concerns. 06/26/2015 Appointment: Lupe Carvajal WPtel: [phone] [id number] (30 min) Complex 06/26/2015 Patient Education: Patient Medication Summary Completed 06/26/2015 Visit Plan: Hypertension - continue with current medications, continue with no added salt diet. Pt has been encouraged to exercise daily.The pt has been advised to call the office if there are any acute concerns about change in blood pressure readings at home.Atherosclerosis of aorta-found on chest xray - Strong family history of heart disease, pt used to smoke, does not currently smoke, but does c hew tobacco - discussed doing screening of abdominal aorta and possibly having an ECHO done. Pt states that he would like to go to a mine engineering superintendent in [place] - Dr. Shabbir Salazar. Will refer patient 02/16/2015 Appointment: (30 min) Complex 02/16/2015 Patient Education: Patient Medication Summary Completed 02/16/2015 Patient Education: Hypertension Completed 02/16/2015 Appointment: (30 min) Complex 01/24/2015 Visit Plan: Hypertension - well controlled - continue with current medications, continue with no added salt diet. Pt has been encouraged to exercise daily.The pt has been advised to call the office if there are any acute concerns about change in blood pressure readings at home.Atherosclerosis of aorta-found on chest xray-discussed obtaining echocardiogram Rib pain-from [id number] if pain does not resolve or if any worse. Patient verbalized understanding of plan. 12/15/2014 Patient Education: Patient Medication Summary Completed 12/15/2014 Patient Education: Hypertension Completed 12/15/2014 Appointment: Fernanda Tse WPtel: [facility] [place] (15 min) Moderate 08/29/2014 Visit Plan: Diabetes Mellitus - Uncontrolled - Labs ordered. I have recommended for the patient to have follow up labs prior to the next office visit. The patient has been instructed to continue with current medications as previously directed, continue with regular FSBS monitoring to assure continued control of diabetes. Pt to call for any acute concerns, complaints, or if the blood glucose readings are starting to become less controlled.I have recommended for the patient to follow more strictly to the diabetic diet as discussed in clinic to allow for greater blood glucose control.Hyperlipidemia - pt has been counseled about appropriate diet, exercise, and need for low fat food choices. I have discussed the need for the patient to take medications as prescribed. If the patient has negative side effects from the medication, they are to CALL the office and not abruptly discontinue the medication without discussion with a practitioner in the office. We will check labs in 3-6 months for follow up on the patient's chronic medical problem and to assure normal liver response to medications.Hypertension - well controlled - continue with current medications, continue with no added salt diet. Pt has been encouraged to exercise daily.The pt has been advised to call the office if there are any acute concerns about change in blood pressure readings at home.Urinary frequency- Check UA and PSAFatigue- Check TSH 07/12/2014 Visit Plan: Diabetes Mellitus - Uncontrolled - Labs ordered. I have recommended for the patient to have follow up labs prior to the next office visit. The patient has been instructed to continue with current medications as previously directed, continue with regular FSBS monitoring to assure continued control of diabetes. Pt to call for any acute concerns, complaints, or if the blood glucose readings are starting to become less controlled.I have recommended for the patient to follow more strictly to the diabetic diet as discussed in clinic to allow for greater blood glucose control.Hyperlipidemia - pt has been counseled about appropriate diet, exercise, and need for low fat food choices. I have discussed the need for the patient to take medications as prescribed. If the patient has negative side effects from the medication, they are to CALL the office and not abruptly discontinue the medication without discussion with a practitioner in the office. We will check labs in 3-6 months for follow up on the patient's chronic medical problem and to assure normal liver response to medications.Hypertension - well controlled - continue with current medications, continue with no added salt diet. Pt has been encouraged to exercise daily.The pt has been advised to call the office if there are any acute concerns about change in blood pressure readings at home.Urinary frequency- Check UA and PSAFatigue- Check TSH 07/12/2014 Visit Plan: Diabetes Mellitus - Uncontrolled - Labs ordered. I have recommended for the patient to have follow up labs prior to the next office visit. The patient has been instructed to continue with current medications as previously directed, continue with regular FSBS monitoring to assure continued control of diabetes. Pt to call for any acute concerns, complaints, or if the blood glucose readings are starting to become less controlled.I have recommended for the patient to follow more strictly to the diabetic diet as discussed in clinic to allow for greater blood glucose control.Hyperlipidemia - pt has been counseled about appropriate diet, exercise, and need for low fat food choices. I have discussed the need for the patient to take medications as prescribed. If the patient has negative side effects from the medication, they are to CALL the office and not abruptly discontinue the medication without discussion with a practitioner in the office. We will check labs in 3-6 months for follow up on the patient's chronic medical problem and to assure normal liver response to medications.Hypertension - well controlled - continue with current medications, continue with no added salt diet. Pt has been encouraged to exercise daily.The pt has been advised to call the office if there are any acute concerns about change in blood pressure readings at home.Urinary frequency- Check UA and PSAFatigue- Check TSH 07/12/2014 Appointment: Patricia Pastor WPtel: [id number] [place] ([place] New Patient 07/12/2014 Patient Education: Patient Medication Summary Completed 07/12/2014 Patient Education: Hypertension Completed 07/12/2014 Care Plan: COMPLETE CBC AUTOMATED LOINC : 90096-2 Ordered 07/12/2014 Care Plan: URINALYSIS NONAUTO W/O SCOPE LOINC : 91098-8 Ordered 07/12/2014 Instructions Comment . Diabetes Mellitus - Uncontrolled - Labs ordered. I have recommended for the patient to have follow up labs prior to the next office visit. The patient has been instructed to continue with current medications as previously directed, continue with regular FSBS monitoring to assure continued control of diabetes. Pt to call for any acute concerns, complaints, or if the blood glucose readings are starting to become less controlled. I have recommended for the patient to follow more strictly to the diabetic diet as discussed in clinic to allow for greater blood glucose control. Hyperlipidemia - pt has been counseled about appropriate diet, exercise, and need for low fat food choices. I have discussed the need for the patient to take medications as prescribed. If the patient has negative side effects from the medication, they are to CALL the office and not abruptly discontinue the medication without discussion with a practitioner in the office. We will check labs in 3-6 months for follow up on the patient's chronic medical problem and to assure normal liver response to medications. Hypertension - well controlled - continue with current medications, continue with no added salt diet. Pt has been encouraged to exercise daily. The pt has been advised to call the office if there are any acute concerns about change in blood pressure readings at home. Urinary frequency- Check UA and PSA Fatigue- Check TSH . Diabetes Mellitus - Uncontrolled - Labs ordered. I have recommended for the patient to have follow up labs prior to the next office visit. The patient has been instructed to continue with current medications as previously directed, continue with regular FSBS monitoring to assure continued control of diabetes. Pt to call for any acute concerns, complaints, or if the blood glucose readings are starting to become less controlled. I have recommended for the patient to follow more strictly to the diabetic diet as discussed in clinic to allow for greater blood glucose control. Hyperlipidemia - pt has been counseled about appropriate diet, exercise, and need for low fat food choices. I have discussed the need for the patient to take medications as prescribed. If the patient has negative side effects from the medication, they are to CALL the office and not abruptly discontinue the medication without discussion with a practitioner in the office. We will check labs in 3-6 months for follow up on the patient's chronic medical problem and to assure normal liver response to medications. Hypertension - well controlled - continue with current medications, continue with no added salt diet. Pt has been encouraged to exercise daily. The pt has been advised to call the office if there are any acute concerns about change in blood pressure readings at home. Urinary frequency- Check UA and PSA Fatigue- Check TSH . Diabetes Mellitus - Uncontrolled - Labs ordered. I have recommended for the patient to have follow up labs prior to the next office visit. The patient has been instructed to continue with current medications as previously directed, continue with regular FSBS monitoring to assure continued control of diabetes. Pt to call for any acute concerns, complaints, or if the blood glucose readings are starting to become less controlled. I have recommended for the patient to follow more strictly to the diabetic diet as discussed in clinic to allow for greater blood glucose control. Hyperlipidemia - pt has been counseled about appropriate diet, exercise, and need for low fat food choices. I have discussed the need for the patient to take medications as prescribed. If the patient has negative side effects from the medication, they are to CALL the office and not abruptly discontinue the medication without discussion with a practitioner in the office. We will check labs in 3-6 months for follow up on the patient's chronic medical problem and to assure normal liver response to medications. Hypertension - well controlled - continue with current medications, continue with no added salt diet. Pt has been encouraged to exercise daily. The pt has been advised to call the office if there are any acute concerns about change in blood pressure readings at home. Urinary frequency- Check UA and PSA Fatigue- Check TSH . Hypertension - continue with current medications, continue with no added salt diet. Pt has been encouraged to exercise daily. The pt has been advised to call the office if there are any acute concerns about change in blood pressure readings at home. Atherosclerosis of aorta-found on chest xray - Strong family history of heart disease, pt used to smoke, does not currently smoke, but does chew tobacco - discussed doing screening of abdominal aorta and possibly having an ECHO done. Pt states that he would like to go to a mine engineering superintendent in [place] - Dr. Shabbir Salazar. Will refer patient . Onychodystrophy - Left thumb nail - nail raised from the nail bed, will send RX - pt is to have liver function labs in 2-4 weeks. Pt is to notify clinic symptoms do not improve, or with any questions or concerns. . Hypertension - well controlled - continue with current medications, continue with no added salt diet. Pt has been encouraged to exercise daily. The pt has been advised to call the office if there are any acute concerns about change in blood pressure readings at home. Atherosclerosis of aorta-found on chest xray-discussed obtaining echocardiogram Rib pain-from [id number] if pain does not resolve or if any worse. Patient verbalized understanding of plan.
[2018-09-03] MEDS ORDERED: CLINDAMYCIN 600 MG/50 ML IVPB 50 ML IV ONE (11:30)
[2018-09-03] MEDS: LACTATED RINGERS 1,000 ML IV PRN ×2 (12:00→14:35)
[2018-09-03] MEDS ORDERED: SEVOFLURANE (ULTANE) 15 ML INHAL SOLN ONE (12:50)
[2018-09-03] MEDS ORDERED: NEOSTIGMINE 3 MG/3 ML VIAL ONE (12:50)
[2018-09-03] MEDS ORDERED: GLYCOPYRROLATE 0.2 MG/ML (ROBINUL) 2 ML VIAL ONE (12:50)
[2018-09-03] MEDS ORDERED: proPOfol 200 MG/20 ML (DIPRIVAN) VIAL IV ONE (12:50)
[2018-09-03] MEDS ORDERED: MIDAZOLAM 2 MG/2 ML (VERSED) VIAL ONE (12:50)
[2018-09-03] MEDS ORDERED: LIDOCAINE PF 2% 5 ML (XYLOCAINE) VIAL ONE (12:50)
[2018-09-03] MEDS ORDERED: ONDANSETRON 4 MG/2 ML (SDV) Z0FRAN ONE ×3 (12:50→15:45)
[2018-09-03] MEDS ORDERED: ROCURONIUM 10 MG/ML 5 ML SYRINGE IV ONE (12:50)
[2018-09-03] MEDS ORDERED: fentaNYL INJECTION 100 MCG/2 ML AMP ONE ×2 (12:50→14:27)
--- NOTE | 2018-09-03 12:52 | Progress Note-Pre Operative ---
Pre-Operative Progress Note H&P Reviewed The H&P was reviewed, patient examined and no changes noted. Date Seen by Provider: Sep 03, 2018 Time Seen by Provider: 12:00 Date H&P Reviewed: Sep 03, 2018 Time H&P Reviewed: 12:00 Pre-Operative Diagnosis: sx ventral abd hernia BLESSING VIVEROS MD Sep 03, 2018 12:52
[2018-09-03] MEDS ORDERED: HYDR-34 PO (12:55)
--- NOTE | 2018-09-03 12:56 | Discharge Inst-Surgical ---
D/C Lap Instructions-JACKELINE New, Converted, or Re-Newed RX: RX on Chart Follow Up Appt in 2 weeks Activity as tolerated No driving for 24 hours Incentive Spirometry use every 2 hours while awake Regular Diet Symptoms to Report: Fever over 101 degree F, Nausea/Vomiting Infection Signs and Symptoms to report: Increased redness, Foul odor of wound, Increased drainage Bathing instructions: May shower Operative Area Clean/Dry; Keep incision clean/dry If any problems/questions: Contact your physician or go to Emergency Room BLESSING VIVEROS MD Sep 03, 2018 12:56
[2018-09-03] MEDS ORDERED: BUP/EPI 0.5% 1:200,000 (MARCAINE) 10ML VIAL IJ ONE (13:00)
[2018-09-03] MEDS ORDERED: ONDANSETRON 4 MG/2 ML (SDV) Z0FRAN IVP PRN (13:00)
[2018-09-03] MEDS ORDERED: ACETAMINOPHEN 325 MG TABLET PO PRN (13:00)
[2018-09-03] MEDS ORDERED: oxyCODONE/APAP 5/325MG (PERCOCET 5) TABLET PO PRN (13:00)
[2018-09-03] MEDS ORDERED: morphine INJ 10 MG/ML 1ML (SYR OR VIAL) IVP PRN ×2 (13:00)
[2018-09-03] MEDS ORDERED: HYDROcodone/APAP 5 MG/325 MG (LORTAB) TAB ONE (13:14)
[2018-09-03] MEDS ORDERED: MEPERIDINE (DEMEROL) INJ 50 MG/ML ONE (15:00)
[2018-09-03] MEDS ORDERED: morphine INJ 10 MG/ML 1ML (SYR OR VIAL) ONE (15:00)
--- NOTE | 2018-09-03 15:01 | Progress Note-Post Operative ---
Post-Operative Progess Note Surgeon (s)/Contact Agent (s) Surgeon BLESSING VIVEROS MD Contact Agent: geoffrey ken [employer]RAT[employer] ASSIST[employer] Pre-Operative Diagnosis sx ventral abd hernia Post-Operative Diagnosis ventral abd peritoneal adhesions. Procedure & Operative Findings Date of Procedure 09/03/18 Procedure Performed/Findings exploration abd wall. diagnostic laparoscopy. lysis of adhesions Anesthesia Type GET Estimated Blood Loss Estimated blood loss (mL): minimal Specimens/Packing Specimens Removed none BLESSING VIVEROS MD Sep 03, 2018 15:01
[2018-09-03] MEDS ORDERED: LABETALOL HCL 20 MG/4 ML VIAL ONE (15:04)
[2018-09-03] MEDS: LABETALOL HCL 100 MG/20 ML VIAL IV PRN ×2 (15:11→15:18)
[2018-09-03] MEDS: ONDANSETRON 4 MG/2 ML (SDV) Z0FRAN IVP PRN ×2 (15:17→15:52)
[2018-09-03] MEDS ORDERED: morphine INJ 10 MG/ML 1ML (SYR OR VIAL) IVP ONE (15:30)
[2018-09-03] MEDS ORDERED: HYDROmorphone 2 MG/ML VIAL (DILAUDID) IV ONE (15:30)
[2018-09-03] MEDS ORDERED: MEPERIDINE (DEMEROL) INJ 50 MG/ML IVP ONE (15:30)
--- NOTE | 2018-09-03 16:06 | Anesthesia-General Post-Op ---
General Patient Condition Mental Status/LOC: Same as Preop Cardiovascular: Satisfactory Nausea/Vomiting: Absent Respiratory: Satisfactory Pain: Controlled Complications: Absent Post Op Complications Complications None Follow Up Care/Instructions Patient Instructions None needed. Anesthesia/Patient Condition Patient Condition Patient is doing well, no complaints, stable vital signs, no apparent adverse anesthesia problems. SHRADDHA BALDERAS DO Sep 03, 2018 16:06
--- NOTE | 2018-09-03 19:43 | OPERATIVE REPORT ---
DATE OF SERVICE: 09/03/2018 ATTENDING PRIMARY CARE PHYSICIAN: Dr. Kj Farris. PREOPERATIVE DIAGNOSIS: Symptomatic ventral abdominal hernia. POSTOPERATIVE DIAGNOSES: No hernia identified. Intra-abdominal adhesions towards the left lateral abdomen. PROCEDURE: Exploration of abdominal wall, diagnostic laparoscopy, lysis of adhesions. SURGEON: Sherwin Viveros MD. CLIENT LEADER: Marquez Domingo APRN. ANESTHESIA: General endotracheal. ESTIMATED BLOOD LOSS: Minimal. FINDINGS: No hernia identified. Intra-abdominal adhesions towards the left lateral abdomen. DISPOSITION: The patient tolerated the procedure well. INDICATIONS: The patient is a 68-year-old male who states that he was straining upon defecation 2 weeks ago, then he sneezed and felt a pulling sensation and pain in the left lateral abdomen and since that time he reports noticing a bulge as well as pain. He was seen by his primary care physician and it was felt that he had a hernia based on his presentation as well as physical examination. DESCRIPTION OF PROCEDURE: The patient was brought to the operating room, laid supine on the table. After adequate IV pain and sedative medications and general endotracheal intubation, the abdomen was prepped and draped in standard surgical fashion. A 0.5% Marcaine and epinephrine was used to anesthetize the overlying skin in the left lateral abdomen. A transverse skin incision was made using a 15 blade. Subcutaneous tissue was then dissected using electrocautery. The subcutaneous tissue was thin. There were no lipomas identified. The anterior rectus sheath appeared to be intact. This was opened and the rectus abdominis muscle identified and appeared to be normal. We then proceeded to dissect circumferentially around the rectus abdominis muscle with no hernia identified within the posterior sheath. There was also no lipomas. At this time, it was decided to proceed with a diagnostic laparoscopy. Through the posterior sheath, a Veress needle was inserted with low opening pressure of 0 mmHg. The abdomen was then insufflated to 15 mmHg pressure. A Veress needle removed and a 5 mm Xcel trocar placed followed by a 5 mm 45 degree angle laparoscope visualizing the peritoneal cavity. A 4-quadrant abdominal exploration was performed. There are no hernias identified. There were adhesion tissues from his previous laparoscopic cholecystectomy along the umbilicus as well as the left lateral abdomen. This was just omentum. No small bowel attachments. This was then taken down bluntly in the avascular plane along the peritoneal lining using blunt dissection. Good hemostasis was observed. No hernias were identified. The abdomen was desufflated. The anterior sheath was then reapproximated using 0 running Prolene suture. Skin was closed using 4-0 Monocryl subcuticular suture. Wound was then cleaned with Dermabond. The patient tolerated the procedure well. We will start IV and oral pain medications as well as a clear liquid diet. Once he is tolerating clears, has good pain control with oral pain medications, ambulating well, we will discharge him home. He will be instructed to do no heavy lifting or exertion for at least two weeks and then slowly increase activity. Job ID: [id number] DocumentID: [id number] Dictated Date: 09/03/2018 15:06:58 Meat Scrubber Date: 09/03/2018 19:42:05 Dictated By: SHERWIN VIVEROS MD
== END 2018-09-03 17:00 | disposition home or self-care (01) ==
LOC: SDC 11:24
PROVIDERS: ATTEND Surgery
DX: K66.0 Peritoneal adhesions (postprocedural) (postinfection) (principal); E11.9 Type 2 diabetes mellitus without complications; I10 Essential (primary) hypertension; E78.00 Pure hypercholesterolemia, unspecified; F17.220 Nicotine dependence, chewing tobacco, uncomplicated; M19.90 Unspecified osteoarthritis, unspecified site; Z90.79 Acquired absence of other genital organ(s); Z88.0 Allergy status to penicillin; Z79.84 Long term (current) use of oral hypoglycemic drugs; Z79.899 Other long term (current) drug therapy; Z82.49 Family history of ischemic heart disease and other diseases of the circulatory system; Z83.3 Family history of diabetes mellitus; Z90.49 Acquired absence of other specified parts of digestive tract
CPT/HCPCS: 82962; 87081

== ENCOUNTER → 2021-08-06 | Outpatient (CLI) | payer MEDICARE, OTHER ==
[~2021-08-06] MED LIST changes: -GLIM4TAB PO; +GLIM4TAB5 PO; +HYDR-34 PO; -LISI10TA2 PO; +LISI10TA25 PO
--- NOTE | 2021-08-06 13:14 | Diagnostic Imaging Report ---
PROCEDURE: CT abdomen and pelvis without contrast. TECHNIQUE: Multiple contiguous axial images were obtained through the abdomen and pelvis without the use of intravenous contrast. Auto Exposure Controls were utilized during the CT exam to meet ALARA standards for radiation dose reduction. INDICATION: Right upper abdominal pain for 3 months. No prior studies are available for comparison. FINDINGS: Lung bases are clear. The liver is unremarkable. Gallbladder surgically absent. No biliary ductal dilatation is seen. No liver mass is detected. The pancreas and spleen are unremarkable. No adrenal mass is identified. No definite renal calculi are detected. Aorta is nonaneurysmal. Bowel loops are normal caliber. There is no obstruction. There is no free fluid or fluid collection. No inflammatory changes are seen. Bony structures are nonacute. IMPRESSION: Unremarkable noncontrast CT of the abdomen and pelvis. Dictated by: Dictated on workstation # [id number]
== END ==
LOC: RAD 12:15
PROVIDERS: ATTEND Nurse Practitioner
DX: R10.11 Right upper quadrant pain (principal)
CPT/HCPCS: 74176

== ENCOUNTER 2021-09-12 05:39 | Outpatient (RCR) | payer MEDICARE, OTHER ==
[~2021-09-12] VITALS: Ht 177.8 cm; Wt 86.9 kg
[2021-09-12] MEDS ORDERED: SEMA0.25 SQ (09:03)
== END 2021-09-20 09:56 | disposition home or self-care (01) ==
LOC: PREOP 05:39 → EDSTATUS 09:15 → PREOP 09-20 09:56
PROVIDERS: ATTEND Surgery
DX: Z01.818 Encounter for other preprocedural examination (principal)

== ENCOUNTER 2021-09-24 07:25 | Day surgery (SDC) | payer MEDICARE, OTHER ==
[~2021-09-24] VITALS: Ht 177.8 cm; Wt 86.9 kg
[~2021-09-24 07:25] MED LIST changes: +SEMA0.25 SQ
[2021-09-24] MEDS ORDERED: LACTATED RINGERS 1,000 ML IV STA (07:33)
[2021-09-24 07:52] VITALS: BP 167/85
[2021-09-24] MEDS ORDERED: PROPOFOL INJECTION 50 ML IV ONE (08:24)
[2021-09-24] MEDS ORDERED: HURRICAINE EXT TUBE (BENZOCAINE) XX ONE (08:30)
[2021-09-24 09:05] VITALS: BP 102/59
--- NOTE | 2021-09-24 09:07 | Progress Note-Post Operative ---
Post-Operative Progess Note Surgeon (s)/Group Director (s) Surgeon NEVA MONTELONGO DO Group Director: AYAZ Calloway Pre-Operative Diagnosis RUQ pain, screening colon Post-Operative Diagnosis Gastritis with bleeding hiatal hernia polyp int hemorrhoids Procedure & Operative Findings Date of Procedure 09/24/21 Procedure Performed/Findings EGD with bx Colonoscopy with hot bx PROCEDURE NOTE: After informed consent was obtained, the patient was brought to the endoscopy suite, placed in bed in left lateral decubitus position. He was administered IV sedation by the SERVICE DELIVERY MANAGEMENT CONSULTANT who then monitored vitals the entire time, heart rate, blood pressure and pulse ox and the scope was inserted down the mouth through the esophagus into the stomach. On the way down, noted some mild esophagitis, took a picture, pushed into the stomach, pushed past the antrum into the duodenum. Duodenum looked good. Pulled back and noted some old blood in the stomach. Did a biopsy of the antrum and then the body of the stomach. Next, retroflexed the scope and saw a small 0.5cm hiatal hernia, took a picture of this. Then pulled the scope into the GE junction, took another picture of the GE junction and then did a biopsy of the GE junction. Pushed the scope back into the stomach, suctioned all the air out of the stomach. At this point pulled the scope up the esophagus and out the mouth. Switched camera, switched gloves, went down below and started the colonoscopy. Pushed all the way into about 140 cm to get all the way to cecum, took a picture of the appendiceal orifice and noted the ileocecal valve. Slowly withdrew the scope, insufflating to look circumferentially at the waddell starting in the cecum, up the ascending colon; where I found a flat polyp and elected to do a hot biopsy to remove it. Continued up to the hepatic flexure, then down the transverse colon to the splenic flexure, into the descending colon and down into the sigmoid. Finally into the rectum, retroflexed in the rectal vault, saw some minimal int ernal hemorrhoids and took a picture of them. The patient tolerated the procedure and he recovered in the endoscopy suite. Recommended for repeat colonoscopy in 5 years Anesthesia Type IV sedation by SERVICE DELIVERY MANAGEMENT CONSULTANT Estimated Blood Loss Estimated blood loss (mL): scant Specimens/Packing Specimens Removed antral bx body of stomach bx GE jxn bx Asc colon polyp NEVA MONTELONGO DO Sep 24, 2021 09:07
[2021-09-24] MEDS ORDERED: PANT40TA2 PO (09:09)
--- NOTE | 2021-09-24 09:09 | Endoscopy Discharge Instruct ---
Endo Procedure/Findings Findings 1.: Gastritis 2.: Hiatal Hernia 3.: Polyp 4.: Internal Hemorrhoids Discharge Instructions - Activity: You might feel a little sleepy until tomorrow. This is due to the medicine you received to relax you. Until tomorrow, you should: NOT drive a car, operate machinery or power tools. NOT drink any alcoholic beverages. NOT make any important decisions or sign importortant papers. Do not return to work until tomorrow, unless otherwise instructed. Resume previous activities tomorrow. Diet: Start by taking liquids. If you tolerate liquids, advance to solid food. 1.: EGD in 1 year 2.: Colonscopy in 5 years Notify Physician - If you experience excessive bleeding, unusual abdominal pain, fever, or chest pain, contact your doctor immediately. NEVA MONTELONGO DO Sep 24, 2021 09:09
[2021-09-24 09:10] VITALS: BP 108/59
[2021-09-24 09:15] VITALS: BP 133/72
[2021-09-24 09:35] VITALS: BP 133/72
--- NOTE | 2021-09-24 11:12 | Anesthesia-General Post-Op ---
MAC Patient Condition Mental Status/LOC: Same as Preop Cardiovascular: Satisfactory Nausea/Vomiting: Absent Respiratory: Satisfactory Pain: Controlled Complications: Absent Post Op Complications Complications None Follow Up Care/Instructions Patient Instructions None needed. Anesthesiology Discharge Order Discharge Order Patient is doing well, no complaints, stable vital signs, no apparent adverse anesthesia problems. No complications reported per nursing. DARIAN MONTEZ CRNA Sep 24, 2021 11:12
== END 2021-09-24 09:38 | disposition home or self-care (01) ==
LOC: ENDO 07:25
PROVIDERS: ATTEND Surgery
DX: D12.2 Benign neoplasm of ascending colon (principal); K44.9 Diaphragmatic hernia without obstruction or gangrene; K64.8 Other hemorrhoids; K29.50 Unspecified chronic gastritis without bleeding; K31.89 Other diseases of stomach and duodenum; K21.00 Gastro-esophageal reflux disease with esophagitis, without bleeding
CPT/HCPCS: 82947; 88305